=== PATIENT | female | born 2005 | race Caucasian/White ===

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

== ENCOUNTER 2024-11-03 20:11 | Emergency (ER) | payer OTHER, SELFPAY ==
--- OUTSIDE RECORDS SUMMARY | 2024-11-03 20:13 | XMS_ITS | Clinical Summary ---
Author Organization [employer] Address [address] [place] [id number] Care Team Providers Care Line Construction Superintendent Name Role Phone Tam Almeida MD Primary Care Provider [phone] Allergies Active Allergy Reactions Criticality Noted Date Comments Cefdinir Rash 03/08/2008 Medications naproxen (NAPROSYN) 500 mg tablet Take 1 tablet by mouth 2 times daily. 10 07/25/2017 Active Active Problems Problem Noted Date Diagnosed Date JRA (juvenile rheumatoid arthritis) 08/04/2017 Immunizations Immunization Administration Dates Next Due AMB Influenza, IIV3 (Age >=3 years)(Flu Clinic Only) 03/06/2012,03/09/2011,02/22/2010,02/17 AMB Influenza, IIV4 PF (=>6 mos Flulaval,Fluzone Fluarix)(Flu Clinic Only) 02/18/2019,02/23/2017,03/03/2016,01/31 COVID-19 vaccine ([employer] NTech 30mcg/0.3mL) 12YO+ MELISSA-SUCROSE PF MDV 04/29/2022,04/06/2022 DTaP-HIB (TriHIBIT) 12/28/2004 SHgK-MasY-FSG (Pediarix) 03/31/2004,02/05/2004,0 2003 DTaP-IPV (Kinrix) 10/28/2008 HIB HbOC (HibTITER) 03/31/2004,02/05/2004,2003 HPV 9 (Gardasil 9) 10/23/2020,06/05/2020, 021 Hepatitis B (Peds) 2003 Hepatitis B, Unspecified 2003 Influenza Virus, Unspecified 02/27/2018, 02/11/2009,03/06/2007,02/10,04/29/2005,03/29/2005 Influenza, IIV3 (Age 6-35 mos) 9,02/10/2006,04/29/2005,03/29 Influenza, IIV3 (Age >=3 years) 02/18/2013,02/11 Influenza, IIV4 01/25/2023,,02/23/2021,03/13,01/30/2015,02/18/2008,03/06/2007 MENINGOCOCCAL VACCINE 2 VIAL 2MO-55YO (MENVEO) 05/01/2020,12/04/2015 MMR 10/28/2008,10/01/2004 Pneumococcal conj 7-Valent (Prevnar 7) 0 12/28/2004,03/31/2004,02/05/2004,11/26 Tdap 12/04/2015 Varicella Vaccine 10/28/2008,10/01/2004 Social History Tobacco Use Types Packs/Day Years Used Date Smoking Tobacco: Never Smokeless Tobacco: Never Tobacco Cessation:Counseling Given: No Comments:no exposure Alcohol Use Standard Drinks/Week Comments No 0 (1 standard drink = 0.6 oz pur e alcohol) PHQ-2 Answer Date Recorded PHQ-2 TOTAL SCORE 0 12/08/2023 Social Connections Answer Date Recorded Frequency of Communication with Friends and Fami ly Not on file 12/08/2023 Financial Resource Strain Answer Date R ecorded Difficulty of Paying Living Expenses Not on file 04/17/2021 Difficulty of Paying Living Expenses Not on file 04/17/2021 Comments No Sex and Gender Information Value Date Recorded Sex Assigned at Not on file Legal Sex Female 7:13 AM [employer] Gender Identity Not on file Sexual Orientation Not on file Obstetrics History Para Term AB IAB SAB Ectopic Multiple Livin g Live Births 0 0 0 0 0 0 0 0 0 0 Last Filed Vital Signs Vital Sign Reading Time Taken Comments Blood Pressure 120/58 12/08/2023 12:54 PM CDT Pulse 76 12/08/2023 12:54 PM CDT Temperature 37.2 C (99 F) 11/27/2020 4:10 PM CDT Respiratory Rate 16 12/19/2017 4:02 PM CDT Oxygen Saturation 100% 06/29/2021 3:16 PM CDT Inhaled Oxygen Concentration - - Weight 76.2 kg (168 lb) 12/08/2023 12:54 PM CDT Height 175.3 cm (5' 9) 12/08/2023 12:54 PM CDT Body Mass Index 24.81 12/08/2023 12:54 PM CDT Plan of Treatment Health Maintenance Due Date Last Done Comments HIV for age 15-65 09/23/2018 Hepatitis C screening for age 18-79 09/23/2021 COVID-19 vaccine series ( season) 2023 04/29/2022, 04/06/2022 Pap test for age 21-65 09/23/2024 BMI (ht and wt on same day) for age 18+ 12/07/2024 12/08/2023 Depression screening for age 12+ 12/07/2024 12/08/2023, 11/27/2020, 05/04/2020, Additional history exists Influenza Vaccine (#1) 2024 , 02/08/2022, 02/23/2021, Additional history exists Tetanus booster 12/03/2025 12/04/2015 Hepatitis B series for 19+ Completed 03/31, 02/05/2004, 2003, Additional history exists Pneumococcal series for age 6-49 Aged Out 12/28/2004, 03/31/2004, 02/05/2004, Additional history exists No longer eligible based on patient's age to complete this topic Meningococcal series for age 11-21 Completed 05/01/2020, 12/04/2015 HPV series for age 9-26 Completed 10/24/19, 06/05/2020, 05/01/2020 Insurance MEDICA CHOICE Care Teams Line Construction Superintendent Relationship Specialty Start Date End Date Tam Almeida MD [address] [place] [address] PCP - General Family Practice 07/31/17
[2024-11-03 20:25] VITALS: BP 129/84; PULSE 93; RESP 16; TEMP 36.9; O2SAT 100; BMI 24.8
--- NOTE | 2024-11-03 20:37 | ED.LOWEXIN ---
HPI - Extremity Injury (Lower) General Time Seen by Provider: 20:37 Date Seen: 11/03/24 Chief Complaint: Extremity Pain/Injury, Lower Stated Complaint: left ankle injury Time Seen by Provider: 11/03/24 20:36 Source: patient and RN notes reviewed Mode of arrival: ambulatory Limitations: no limitations History of Present Illness HPI Narrative: This 19-year-old female is coming in with pain behind her left ankle. She was stepping off a boat and heard I ripping noise, the pain was in the back of the foot/ankle area. She does feel it radiating up into the calf at times. She cannot walk, has significant pain. She points to the back of the heel and ankle where she is feeling the pain. Related Data Home Medications ?Medication ?Instructions ?Recorded ?Confirmed adalimumab 40 mg/0.4 mL 40 mg subcut 03/19/22 subcutaneous pen kit (Humira(CF) Pen) Allergies Allergy/AdvReac Type Severity Reaction Status Date / Time No Known Drug Allergies Allergy Verified 11/03/24 20:25 Review of Systems Narrative: As per HPI. PFSH [facility] Medical History No significant past medical history Surgical History (Updated 08/21/22 @ 21:17 by Booker Santiago RN) No significant past surgical history Social History Smoking Status: Never smoker Do you use any of these nicotine containing products: None Second hand tobacco smoke exposure: No How often do you have a drink containing alcohol: never AUDIT-C Alcohol total score: 0 Non-prescribed substance use: denies use Exam Const: Vital Signs, click to edit/add: Vital Signs - 24 hr 11/03/24 20:25 Temperature 98.5 F Pulse Rate [Pulse Oximeter] 93 Respiratory Rate 16 Blood Pressure [Ri ght Upper Arm] 129/84 Pulse Oximetry 100 This 19-year-old female is seen in exam room to come she is alert, interactive, no apparent distress. On inspection of her foot at the lower extremity, note no erythema, no swelling, no ecchymosis, no wounds. She has good peripheral pulses in the foot. Normal light touch sensation. She does not have pain over the medial lateral malleolus, ankle mortise is intact. She has point tenderness over the Achilles. Still do feel some contour and firmness to the Achilles. I still get some slight plantar flexion with compressing her calf. Unable to bear weight due to pain. Can do some dorsiflexion and plantar flexion but it does cause patient pain. Documenting provider has reviewed patient's vital signs: yes Course Course ED Course: Will obtain images on x-ray of this ankle to ensure no fracture or avulsion injury. Have reviewed with patient that I have clinical concerns of Achilles injury (certainly not complete tearing) which may need MRI for further evaluation. Will need to follow up with orthopedics for this, no MRI capacity here at this time. Reevaluation(s) Time of Reevaluation #1: 21:18 Reevaluation #1: Did review with the patient her x-ray is negative for fracture. We cannot see ligamentous injury on plain imaging and we do not have MRI at this time tonight. We will place her in a cam walker. If she is comfortable in this, can discharge with that. If she is still having significant pain with ambulation, will put her on crutches. She will need follow-up with Orthopedics. 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 They can give further work restrictions if needed. Time of Reevaluation #2: 21:49 Reevaluation #2: Patient is having pain when attempting to ambulate in the boot, will give her crutches. Consultations Consultation #1: Did review this case with Jerica from Orthopedics. She states patient could go into a cam walker for mobilization. Use crutches as needed for pain-free ambulation. Patient is comfortable in cam walker can ambulate with that. She should contact them for follow-up in clinic. Time: 20:58 Vital Signs Vital signs: Initial Vital Signs Temperature 98.5 F 11/03/24 20:25 Temperature Source Temporal Artery Scan 11/03/24 20:25 Pulse Rate 93 11/03/24 20:25 Respiratory Rate 16 11/03/24 20:25 Blood Pressure 129/84 11/03/24 20:25 Blood Pressure Mean 99 11/03/24 20:25 Blood Pressure Position High-Fowlers 11/03/24 20:25 Pulse Oximetry 100 11/03/24 20:25 Vital Signs Temperature 98.5 F 11/03/24 20:25 Pulse Rate 93 11/03/24 20:25 Respiratory Rate 16 11/03/24 20:25 Blood Pressure 129/84 11/03/24 20:25 Pulse Oximetry 100 11/03/24 20:25 Temperature 98.5 F 11/03/24 20:25 Pulse Rate 93 11/03/24 20:25 Respiratory Rate 16 11/03/24 20:25 Blood Pressure 129/84 11/03/24 20:25 Pulse Oximetry 100 11/03/24 20:25 MDM - Extremity Injury (Lower) Imaging Data XR left ankle: Attestation: I have reviewed the pertinent imaging results. My impression: X-ray reviewed, do not appreciate any acute ankle fracture. Radiologist's impression: Patient: NIKKI DOOLEY Facility:?[facility] Patient ID:?[id number] Site Patient ID:?[id number]. Site :?[id number] Study:?XRay-Extremity Left ANKLE-11/03/2024 8:53:42 PM Ordering Physician:?Jonas Perez Final Report: Indication: Trauma. Technique: Left ankle, 3 views. Comparison: None. Findings/Impression: Bones: Alignment is normal. No displaced fractures or bone lesions. Joint spaces: Unremarkable. Soft tissues: Unremarkable. Dictated by Sai Carter MD @ 11/03/2024 9:06:02 PM (Electronic Signature) Discharge Plan Discharge Clinical Impression: Achilles tendon injury Qualifiers: Encounter type: initial encounter Laterality: left Qualified Code(s): S86.002A - Unspecified injury of left Achilles tendon, initial encounter Patient Disposition: Home, Self-Care Condition: Stable Instructions: Achilles Tendon Rupture (ED), Achilles Tendinitis (ED) Additional Instructions: There is no evidence of fracture on your x-ray tonight. Based on where your pain is, have concerned that there is an injury to the Achilles tendon. I do not believe that there is a complete tear of the Achilles tendon based on your evaluation. Use the cam walker for immobilization. You will need to contact Orthopedics to get scheduled for a follow-up, please let them know they would like to be seen as soon as possible. Phone number is [phone]. Can open boot up to put ice on painful area while at rest. Fine to use Tyleno/ibuprofen per bottle directions as needed for pain. Activity Level: Activity as Tolerated Prescriptions: No Action Humira(CF) Pen 40 mg/0.4 mL pen injector kit 40 mg SUBCUT Follow Up/Referrals: Tam Almeida MD [Primary Care Provider, Family Practice] Stand Alone Forms: [facility] Info Instructions
--- NOTE | 2024-11-03 20:41 | CRLHL7_ITS ---
For Patients: As a result of the Century Cures Act, medical imaging exams and procedure reports are released immediately into your electronic medical record. You may view this report before your referring provider. If you have questions, please contact your health care provider. Indication: Trauma. Technique: Left ankle, 3 views. Comparison: None. Findings/Impression: Bones: Alignment is normal. No displaced fractures or bone lesions. Joint spaces: Unremarkable. Soft tissues: Unremarkable. Dictated by Sai Carter MD @ 11/03/2024 9:06:02 PM (Electronically Signed)
== END 2024-11-03 21:54 | disposition home or self-care (01) ==
PROVIDERS: Emergency Provider Family Medicine; PCP Surgery
DX: S86.002A Unspecified injury of left Achilles tendon, initial encounter (principal); X50.1XXA Overexertion from prolonged static or awkward postures, initial encounter
CPT/HCPCS: 73610; 99283